=== PATIENT | female | born 1965 | race Caucasian/White ===

== ENCOUNTER 2017-12-15 00:13 | Emergency (ER) | payer BC ==
[2017-12-15] MEDS ORDERED: Silver Sulfadiazine 1% Cream 50 GM JAR ONE (00:36)
[2017-12-15] MEDS ORDERED: Ibuprofen 800 MG TAB ONE (00:36)
== END 2017-12-15 00:45 | disposition home or self-care (01) ==
LOC: SCSER 00:13
DX: T24.211A Burn of second degree of right thigh, initial encounter (principal); E11.9 Type 2 diabetes mellitus without complications; E78.5 Hyperlipidemia, unspecified; I10 Essential (primary) hypertension; X11.8XXA Contact with other hot tap-water, initial encounter
CPT/HCPCS: 16020